=== PATIENT | female | born 1935 | race Caucasian/White ===

== ENCOUNTER 2016-12-23 07:51 | Emergency (ER) | payer OTHER, BC, MEDICARE ==
[~2016-12-23] VITALS: Ht 152.4 cm; Wt 68.0 kg
--- NOTE | 2016-12-23 08:00 | ED GI/GU/ABDOMINAL COMPLAINT ---
See Addendum History of Present Illness General Chief Complaint: Abdominal Pain/Flank Pain Stated Complaint: BIBA ABD PAIN' Source: patient, old records, EMS Exam Limitations: no limitations Vital Signs & Intake/Output Vital Signs & Intake/Output Vital Signs Date Time Temp Pulse Resp B/P B/P Pulse O2 O2 Flow FiO2 Mean Ox Delivery Rate 12/23 1123 96.0 78 18 121/63 93 Room Air 12/23 0804 97.1 84 20 165/77 96 Room Air Allergies Coded Allergies: NO KNOWN ALLERGIES (06/25/13) Reconcile Medications Ergocalciferol (Vitamin D2) (Vitamin D2) 50,000 UNIT CAPSULE 1 CAP PO QW VITAMIN SUPPORT (Reported) Folic Acid 1 MG TABLET 1 TAB PO DAILY VITAMIN SUPPORT (Reported) Levothyroxine Sodium 150 MCG TABLET 1 TAB PO DAILY AC THYROID (Reported) Methotrexate 2.5 MG TABLET 6 TAB PO QW UNKNOWN (Reported) sulfaSALAzine (Sulfazine) 500 MG TABLET 1 TAB PO DAILY UNKNOWN (Reported) Triage Nurses Notes Reviewed? yes ? N Is pt currently ? No HPI: Patient presents with diffuse crampy abdominal pain that has been worsening over the past few days. Positive nausea but no vomiting. Patient states she was constipated for 3 days but then began having diarrhea 2 days ago. Patient has an umbilical hernia that she says has been increasing in size over the past few months. The crampy abdominal pain started this morning. It is diffuse. There are no aggravating or mitigating factors. There is no radiation outside of the abdominal area. She rates it as 5 out of 10. Past History Medical History Any Pertinent Medical History? see below for history Musculoskeletal: rheumatoid arthritis History of MRSA: No History of VRE: No History of CDIFF: No Pneumonia Vaccine: 06/15/06 Influenza Vaccine: 06/15/06 Surgical History Surgical History: non-contributory Psychosocial History Who do you live with Sister Services at Home None What is your primary language Cymraes Tobacco Use: Quit >30 days ago ETOH Use: denies use Illicit Drug Use: denies illicit drug use Family History Family History, If Any: MOTHER Relation not specified for: Pneumonia Hx Contributory? No Review of Systems Review of Systems Constitutional: Reports: no symptoms. EENTM: Reports: no symptoms. Respiratory: Reports: no symptoms. Cardiovascular: Reports: no symptoms. GI: Reports: see HPI, abdominal pain, constipation, diarrhea, nausea. Genitourinary: Reports: no symptoms. Musculoskeletal: Reports: no symptoms. Skin: Reports: no symptoms. Neurological/Psychological: Reports: no symptoms. Hematologic/Endocrine: Reports: no symptoms. Immunologic/Allergic: Reports: no symptoms. All Other Systems: Reviewed and Negative Physical Exam Physical Exam General Appearance: well developed/nourished, alert, awake, moderate distress Head: atraumatic, normal appearance Eyes: Bilateral: PERRL, EOMI. Ears, Nose, Throat, Mouth: hearing grossly normal, moist mucous membrane Neck: normal inspection, supple, full range of motion Respiratory: normal breath sounds, chest non-tender, no respiratory distress, lungs clear Cardiovascular: regular rate/rhythm, normal peripheral pulses Gastrointestinal: NON TENDER TO PALPATION, INCREASED BOWEL SOUNDS, LARGE UMBILICAL HERNIA WITH BOWEL SOUNDS IN HERNIA, NO REBOUND OR GUARDING Back: normal inspection, normal range of motion Extremities: normal range of motion Neurologic/Psych: no motor/sensory deficits, awake, alert, oriented x 3, normal mood/affect Skin: intact, normal color, warm/dry Core Measures ACS in differential dx? No Severe Sepsis Present: No Septic Shock Present: No Progress Differential Diagnosis: bowel obstruction, colon cancer, cholecystitis, diverticulitis, gastritis, hepatitis, hernia, ischemic bowel, inflamm bowel dis, pancreatitis, PUD/GERD, SBO Plan of Care: Orders Procedure Date/time Status Add-on Test (ER Only) 12/23 0929 Active LACTIC ACID 12/23 0819 Complete URINALYSIS 12/23 0759 Complete TROPONIN LEVEL 12/23 0759 Complete LIPASE 12/23 0759 Complete COMPREHENSIVE METABOLIC PANEL 12/23 0759 Complete CBC WITHOUT DIFFERENTIAL 12/23 0759 Complete AMYLASE 12/23 0759 Complete EKG 12/23 0755 Active Laboratory Tests 12/23/16 0856: Urinalysis MOD H, Urine Color YEL, Urine Clarity HAZY H, Urine pH 6.0, Ur Specific [place] 1.020, Urine Protein 30 H, Urine Ketones TRACE H, Urine Nitrite NEG, Urine Bilirubin NEG@ICTO, Urine Urobilinogen 0.2, Ur Leukocyte Esterase LARGE H, Ur Microscopic SEDIMENT EXAMINED, Urine RBC 3-5, Urine WBC 1- 3 H, Ur Epithelial Cells FEW, Urine Bacteria MOD H, Urine Hemoglobin MOD H, Urine Glucose NEG 12/23/16 0819: Anion Gap 11, Estimated GFR > 60, BUN/Creatinine Ratio 15.6, Glucose 104 H, Lactic Acid 1.2, Calcium 8.5, Total Bilirubin 1.0, AST 32, ALT 25, Alkaline Phosphatase 135 H, Troponin I < 0.01, Total Protein 7.2, Albumin 3.7, Globulin 3.5, Albumin/Globulin Ratio 1.1, Amylase 120 H, Lipase 473 H, CBC w Diff NO MAN DIFF REQ, RBC 4.06 L, MCV 89.0, MCH 28.9, RDW 17.8 H, MPV 6.4 L, Gran % 75.8 H, Lymphocytes % 18.5 L, Monocytes % 3.5, Eosinophils % 1.5, Basophils % 0.7, Absolute Granulocytes 6.2, Absolute Lymphocytes 1.5, Absolute Monocytes 0.3 , Absolute Eosinophils 0.1, Absolute Basophils 0.1, PUBS MCHC 32.5 L Diagnostic Imaging: Viewed by Me: CT Scan. Discussed w/RAD: CT Scan. Initial ED EKG: NSR, nonspecific ST T wave chg, LAD Prior EKG: unchanged Comments: HERNIA IS REDUCIBLE BUT THEN IT COMES RIGHT BACK OUT. Patient was seen and evaluated by surgery in the emergency department. Patient is stable for discharge and she will follow up with them as an outpatient for possible closure. Departure Departure Disposition: HOME OR SELF CARE Condition: Stable Clinical Impression Primary Impression: Umbilical hernia Referrals: EDWARDO BASILIO,LIAM PLATA MD,VITOR [facility]. Additional Instructions: Follow-up with Vitor Plata MD. Return if symptoms worsen or for any concerns. Departure Forms: Customer Survey General Discharge Information
[2016-12-23 08:44] LABS: ABSOLUTE BASOPHIL COUNT 0.1 /CUMM (0.0-0.2); ABSOLUTE EOSINOPHIL COUNT 0.1 /CUMM (0.0-0.7); ABSOLUTE GRANULOCYTE CT 6.2 /CUMM (1.4-6.5); ABSOLUTE LYMPH COUNT 1.5 /CUMM (1.2-3.4); ABSOLUTE MONOCYTE COUNT 0.3 /CUMM (0.10-0.60); BASOPHIL % 0.7 % (0.0-2.0); EOSINOPHIL % 1.5 % (0-5); GRANULOCYTE % 75.8 % (42.2-75.2); HEMATOCRIT 36.2 % (37-47); MEAN CORPUSCULAR HGB 28.9 PG (27.0-31.0); MEAN CORPUSCULAR HGB CONC 32.5 G/DL (33.0-37.0); MEAN PLATELET VOLUME 6.4 FL (7.4-10.4); PLATELET COUNT 241 /CUMM (130-400); RBC DISTRIBUTION WIDTH 17.8 % (11.5-14.5); RED BLOOD CELL CT 4.06 /CUMM (4.20-5.40); WHITE BLOOD CELL COUNT 8.1 /CUMM (4.8-10.8)
[2016-12-23] MEDS ORDERED: FOLIC ACID1 M1 PO (10:08)
[2016-12-23] MEDS ORDERED: LEVOTHYROXINE150 MCG PO (10:09)
[2016-12-23] MEDS ORDERED: SULFAZINE500 M2 PO (10:10)
[2016-12-23] MEDS ORDERED: VITAMIN D250000 UNIT PO (10:10)
[2016-12-23] MEDS ORDERED: METHOTREXATE2.5 M2 PO (10:10)
--- NOTE | 2016-12-23 10:59 | CT SCAN REPORT ---
EXAMINATION: CT ABDOMEN AND PELVIS WITHOUT CONTRAST CLINICAL INFORMATION: Clinical question of small bowel obstruction. COMPARISON: CT pelvis dated 06/25/2013. TECHNIQUE: Multidetector volumetric imaging was performed from the superior aspect of the liver through the pubic symphysis. Sagittal and coronal reformatted images were obtained on the technologist's workstation. DLP: 428.89 mGy-cm FINDINGS: LUNG BASES: The visualized lung bases are unremarkable. LIVER, GALLBLADDER, AND BILIARY TREE: The liver is normal in size, shape, and attenuation. No focal hepatic lesion or biliary ductal dilatation is present. The gallbladder is surgically absent. PANCREAS: Unremarkable. SPLEEN: No splenomegaly. Posteriorly within the spleen, there is a 1.9 cm low-attenuation probable epithelial cyst. This is of incidental note. ADRENAL GLANDS: Unremarkable. KIDNEYS AND URETERS: The kidneys are normal in size, shape, and attenuation. No hydronephrosis, hydroureter, or calculi seen. No perinephric stranding. BLADDER: Unremarkable. GASTROINTESTINAL TRACT: There is a periumbilical hernia defect which contains a large loop of transverse colon. The hernia defect shows a neck of approximately 3.6 x 2.8 cm (2:51 and 601:66). There is secondary mild dilatation of more proximal transverse colon, and there is nonpathologic dilatation of a few small bowel loops, one of the largest in the left midabdomen showing a caliber of only approximately 2.8 cm (2:44). This suggests a competent ileocecal valve. The vermiform appendix is normal. There is no diverticulosis or diverticulitis. ABDOMINAL WALL: There is a periumbilical hernia defect, as above. LYMPH NODES: There is no sizable mesenteric or para-aortic adenopathy. There are enlarged bilateral iliac lymph nodes, the largest on the right in the lower chain measuring 2.6 x 1.3 cm (2:67, and on the left in the proximal chain measuring 1.7 x 1.7 cm (2:52). On 06/25/2013, these showed respective maximal dimensions of 2.9 x 1.6 cm (2:60) and 1.9 x 1.6 cm (2:50). VASCULAR: There is mild to moderate aortoiliac atherosclerotic change. No abdominal aortic aneurysm is seen. PELVIC VISCERA: The uterus and adnexa are unremarkable. OSSEOUS STRUCTURES: There are marked thoracolumbar scoliotic changes. There is multi-level thoracolumbar degenerative disc disease, spondylosis and facet arthropathy. No acute or aggressive osseous abnormality is seen. IMPRESSION: 1. There is a large periumbilical hernia defect containing a loop of transverse colon. There is secondary mild nonpathologic dilatation of proximal colon and distal small bowel loops, suggesting an element of partial obstruction. No free intraperitoneal air is seen. 2. There is nonspecific pelvic lymphadenopathy, with some improvement from prior. Please correlate clinically. Recommendation continued attention on follow-up. 3. There are marked thoracolumbar scoliotic and other degenerative changes.
[2016-12-23 11:23] VITALS: BP 121/63
== END 2016-12-23 14:24 ==
LOC: ERH 07:51
PROVIDERS: Emergency Medicine
DX: K42.9 Umbilical hernia without obstruction or gangrene (principal)
CPT/HCPCS: 74176; 81001; 93005; 93010; 96374; J2405